=== PATIENT | male | born 1940 | race Caucasian/White ===

== ENCOUNTER 2017-06-17 06:42 | Observation (INO) | payer MEDICARE, BC ==
[2017-06-17] MEDS ORDERED: Ketorolac 30 MG/ML SDV IVPUSH ONE (07:27)
[2017-06-17] MEDS ORDERED: Ketorolac 30 MG/ML SDV ONE (07:28)
--- NOTE | 2017-06-17 07:35 | EDM.PDOC ---
ED HPI GENERAL MEDICAL PROBLEM - General Chief Complaint: General Stated Complaint: WEAKNESS,DIAPHORESIS Time Seen by Provider: 06/17/17 07:15 Source of Information: Reports: Patient History Limitations: Reports: No Limitations - History of Present Illness INITIAL COMMENTS - FREE TEXT/NARRATIVE: This is an alert and coherent 77yoM brought in via EMS for concerns of chest pain and shortness of breath and diaphoresis. Patient states the symptoms have resolved at this time except for the left chest pain that is worse on movement and deep breaths. He states he does smoke and was checked up previously for COPD and does not have any of that. He has had a history of MT and persistent Atrial fibrillation on Xarelto. He is a diabetic on metformin only and controlled sugars. He denies any lightheadedness at this time, no loss of consciousness and no other symptoms at this time. He states he did fall a couple times but he was intoxicated at those times. He does recall grasping with his left arm trying to catch his fall. Onset: Sudden Duration: Hour(s): (6-7 hours), Improving Location: Reports: Chest (wall ) Severity: Moderate Improves with: Reports: None Worsens with: Reports: Movement Left Chest Pain Score (Numeric/FACES): 3 - Related Data Allergies Allergy/AdvReac Type Severity Reaction Status Date / Time No Known Allergies Allergy Verified 06/17/17 07:49 Home Meds: Home Meds Aspirin [Halfprin] 81 mg PO DAILY 06/17/17 [History] Losartan [Cozaar] 50 mg PO DAILY 06/17/17 [History] Rivaroxaban [Xarelto] 20 mg PO DAILY 06/17/17 [History] amLODIPine Besylate [Amlodipine Besylate] 10 mg PO DAILY 06/17/17 [History] atorvaSTATin [Lipitor] 80 mg PO BEDTIME 06/17/17 [History] metFORMIN [Glucophage] 1,000 mg PO DAILY 06/17/17 [History] ED ROS GENERAL - Review of Systems Review Of Systems: ROS reveals no pertinent complaints other than HPI. ED EXAM, GENERAL - Physical Exam Exam: See Below Exam Limited By: No Limitations General Appearance: Alert, WD/WN, No Apparent Distress Eye Exam: Bilateral Eye: EOMI, PERRL Ears: Normal External Exam Nose: Normal Inspection Throat/Mouth: Normal Inspection Head: Atraumatic, Normocephalic Neck: Normal Inspection Respiratory/Chest: No Respiratory Distress, Lungs Clear, Normal Breath Sounds Cardiovascular: Normal Peripheral Pulses, Regular Rate, Rhythm GI/Abdominal: Normal Bowel Sounds Back Exam: Normal Inspection Extremities: Normal Inspection, Normal Range of Motion Neurological: Alert, Oriented, CN II-XII Intact Psychiatric: Normal Affect, Normal Mood Skin Exam: Warm, Dry, Intact Course - Vital Signs Last Recorded V/S: Last Vital Signs Temp 36.9 C 06/17/17 09:46 Pulse 88 06/17/17 09:46 Resp 16 06/17/17 09:46 BP 152/86 H 06/17/17 09:46 Pulse Ox 98 06/17/17 09:46 - Orders/Labs/Meds Labs: Laboratory Tests 06/17/17 06/17/17 Range/Units 07:27 07:27 WBC 11.4 H (4.0-11.0) K/uL RBC 4.58 (4.50-6.50) M/uL Hgb 14.5 (13.0-18.0) g/dL Hct 42.3 (40.0-54.0) % MCV 92 (76-96) fL MCH 31.7 (27.0-32.0) pg MCHC 34.3 (31.0-35.0) g/dL RDW 12.4 (11.0-16.0) % Plt Count 227 (150-400) K/uL MPV 8.9 (6.0-10.0) fL Neut % (Auto) 74.2 H (45.0-70.0) % Lymph % (Auto) 12.6 L (20.0-40.0) % [place] % (Auto) 10.6 H (3.0-10.0) % Eos % (Auto) 2.4 (1.0-5.0) % Baso % (Auto) 0.2 (0.0-0.5) % Neut # (Auto) 8.45 H (2.00-7.50) K/uL Lymph # (Auto) 1.43 L (1.50-4.00) K/uL [place] # (Auto) 1.21 H (0.20-0.80) K/uL Eos # (Auto) 0.27 (0.04-0.40) K/uL Baso # (Auto) 0.02 (0.02-0.10) K/uL Sodium 138 (136-145) mmol/L Potassium 3.8 (3.5-5.1) mmol/L Chloride 102 (98-107) mmol/L Carbon Dioxide 23.9 (21.0-32.0) mmol/L Anion Gap 15.9 H (5.0-15.0) mmol/L BUN 12 (8-26) mg/dL Creatinine 0.90 (0.70-1.30) mg/dL Est Cr Clr Drug Dosing TNP Estimated GFR (MDRD) > 60 (>60) MLS/MIN BUN/Creatinine Ratio 13.3 (6-25) Glucose 140 H (74-100) mg/dL Calcium 8.4 L (8.5-10.1) mg/dL Total Bilirubin 0.2 (0.0-1.0) mg/dL AST 22 (15-37) U/L ALT 26 (12-78) U/L Alkaline Phosphatase 95 (46-116) U/L Troponin I < 0.017 (0.000-0.060) ng/mL Total Protein 6.6 (6.4-8.2) g/dL Albumin 3.4 (3.4-5.0) g/dL Globulin 3.2 (2.2-4.2) g/dL Albumin/Globulin Ratio 1.1 (0.8-2.0) Meds: Medications Discontinued Medications Generic Name Dose Route Start Last Admin Trade Name Freq PRN Reason Stop Dose Admin Ketorolac Tromethamine Confirm 06/17/17 07:28 06/17/17 09:31 Toradol Administered 06/17/17 07:29 Not Given Dose 30 mg .ROUTE .STK-MED ONE Ketorolac Tromethamine 30 mg 06/17/17 07:27 06/17/17 07:20 Toradol IVPUSH 06/17/17 07:28 30 mg ONETIME ONE Administration Departure - Departure Time of Disposition: 09:00 Disposition: Refer to Observation Condition: Good Clinical Impression: Chest pain Qualifiers: Chest pain type: intercostal pain Qualified Code(s): R07.82 - Intercostal pain - Discharge Information - Problem List & Annotations (1) Chest pain SNOMED Code(s): 83669055 Code(s): R07.9 - CHEST PAIN, UNSPECIFIED Status: Acute Qualifiers: Chest pain type: unspecified Qualified Code(s): R07.9 - Chest pain, unspecified - Problem List Review Problem List Initiated/Reviewed/Updated: Yes - Assessment/Plan Plan: Patient placed in observation for follow up troponin level. Discussed plan of care and patient agrees with current plan.
--- NOTE | 2017-06-17 12:06 | CR ---
DATE OF SERVICE: 06/17/17 CLINICAL DATA: chest wall pain AP PORTABLE CHEST: No priors. The heart size is within normal limits. There is calcification of the aortic arch. The lungs are clear. No pneumothorax. No pleural effusions. The patient is status post bilateral shoulder arthroplasty. [id number] [facility]
--- NOTE | 2017-06-18 05:20 | PCM.DCSUM1 ---
Discharge Summary - Discharge Data Discharge Date: 06/17/17 Discharge Disposition: Home, Self-Care 01 Condition: Stable - Discharge Diagnosis/Problem(s) (1) Chest pain SNOMED Code(s): 40806890 ICD Code: R07.9 - CHEST PAIN, UNSPECIFIED Status: Acute Qualifiers: Chest pain type: intercostal pain Qualified Code(s): R07.82 - Intercostal pain - Patient Instructions Activity: As Tolerated Driving: May Drive Today - Discharge Plan Home Medications: Home Meds Aspirin [Halfprin] 81 mg PO DAILY 06/17/17 [History] Losartan [Cozaar] 50 mg PO DAILY 06/17/17 [History] Rivaroxaban [Xarelto] 20 mg PO DAILY 06/17/17 [History] amLODIPine Besylate [Amlodipine Besylate] 10 mg PO DAILY 06/17/17 [History] atorvaSTATin [Lipitor] 80 mg PO BEDTIME 06/17/17 [History] metFORMIN [Glucophage] 1,000 mg PO DAILY 06/17/17 [History] Forms: ED Department Discharge Referrals: PCP,None [Primary Care Provider] - - Discharge Summary/Plan Comment Discharge Summary/Plan Comment: Counseled on continued care and monitoring of chest pain. Discussed chest wall pain and f/u if symptoms persist or worsen. Discussed f/u with PCP and patient agrees to close monitoring and f/u. - Patient Data Vitals - Most Recent: Last Vital Signs Temp 36.9 C 06/17/17 09:46 Pulse 88 06/17/17 09:46 Resp 16 06/17/17 09:46 BP 152/86 H 06/17/17 09:46 Pulse Ox 98 06/17/17 09:46 Weight - Most Recent: 76.204 kg Lab Results - Last 24 hrs: Laboratory Results - last 24 hr 06/17/17 Range/Units 13:15 Troponin I < 0.017 (0.000-0.060) ng/mL Med Orders - Current: Current Medications Discontinued Medications Ketorolac Tromethamine (Toradol) Confirm Administered Dose 30 mg .ROUTE .STK- MED ONE Stop: 06/17/17 07:29 Last Admin: 06/17/17 09:31 Dose: Not Given Ketorolac Tromethamine (Toradol) 30 mg IVPUSH ONETIME ONE Stop: 06/17/17 07:28 Last Admin: 06/17/17 07:20 Dose: 30 mg *Q Meaningful Use (DIS) - VTE *Q VTE Criteria *Q: - Stroke *Q Stroke Criteria *Q: - AMI *Q AMI Criteria *Q:
== END 2017-06-17 14:30 | disposition home or self-care (01) ==
LOC: LB.ED 06:42 → LB.MS 08:35 → UNDOADMOB 08:35 → LB.MS 08:38
PROVIDERS: ADMIT Family Medicine; ATTEND Family Medicine
DX: R07.82 Intercostal pain (principal); Z79.82 Long term (current) use of aspirin; Z79.84 Long term (current) use of oral hypoglycemic drugs; Z79.899 Other long term (current) drug therapy
CPT/HCPCS: 36415; 71045; 80053; 84484; 85025; 93005; 96374; 99235; 99285-25; A0425; A0429; J1885